=== PATIENT | male | born 1980 | race Two or more races ===

== ENCOUNTER 2024-10-10 19:01 | Emergency (ER) | payer MEDICARE, OTHER ==
[~2024-10-10] VITALS: Ht 170.2 cm; Wt 7.3 kg
[2024-10-10 19:11] VITALS: BP 173/63
[2024-10-10] MEDS ORDERED: HYDROMORPHONE 1 MG/1 ML DISP.SYRIN ONE ×2 (20:13→21:11)
[2024-10-10] MEDS ORDERED: ONDANSETRON 4 MG/2 ML VIAL ONE ×2 (20:13→21:11)
[2024-10-10] MEDS: ONDANSETRON 4 MG/2 ML VIAL IV ONE ×2 (20:17→21:22)
[2024-10-10] MEDS: HYDROMORPHONE 1 MG/1 ML DISP.SYRIN IV ONE ×2 (20:17→21:22)
[2024-10-10 20:23] LABS: PLATELET COUNT (AUTO) 50 K/uL (152-348); RED BLOOD CELL COUNT(AUTO) 3.47 MIL/uL (4.06-5.63); RED CELL DISTRIBUTION WIDTH 13.6 % (12.1-16.2); WHITE BLOOD COUNT (AUTO) 3.6 K/uL (3.6-10.2)
[2024-10-10 20:29] LABS: CREATININE 7.3 mg/dL (0.6-1.3); SODIUM SERUM 138.0 mmol/L (136-145); UREA NITROGEN, BLOOD 39.0 mg/dL (7-18)
[2024-10-10 20:34] LABS: ASPARTATE AMINOTRANSFERASE 9.0 U/L (15-37); TOTAL PROTEIN, SERUM 7.7 g/dL (6.4-8.2)
[2024-10-10] MEDS ORDERED: ONDA4TAB11 PO (21:07)
[2024-10-10] MEDS ORDERED: OXYC-133 PO (21:07)
[2024-10-10 22:31] VITALS: BP 168/66; O2SAT 99
== END 2024-10-10 21:48 | disposition home or self-care (01) ==
LOC: ER 19:08
DX: G89.29 Other chronic pain (principal); R10.9 Unspecified abdominal pain; E11.22 Type 2 diabetes mellitus with diabetic chronic kidney disease; N18.6 End stage renal disease; R94.31 Abnormal electrocardiogram [ECG] [EKG]; Z99.2 Dependence on renal dialysis
CPT/HCPCS: 99284; 96374; 96375; 80053; 83735; 84100; 85025; 36415; 93005; 96376; J2405 ×2; J1171 ×2; A4606; A4663

== ENCOUNTER 2024-11-02 20:19 | Emergency (ER) | payer MEDICARE, OTHER ==
[~2024-11-02] VITALS: Ht 170.2 cm; Wt 72.6 kg
[~2024-11-02 20:19] MED LIST: ONDA4TAB11 PO; OXYC-133 PO
[2024-11-02] MEDS: ONDANSETRON 4 MG/2 ML VIAL IV ONE (21:21)
[2024-11-02] MEDS ORDERED: BUPRENORPHINE HCL 2 MG TAB.SUBL SL ONE (21:21)
[2024-11-02 21:23] LABS: PLATELET COUNT (AUTO) 76 K/uL (152-348); RED BLOOD CELL COUNT(AUTO) 3.41 MIL/uL (4.06-5.63); RED CELL DISTRIBUTION WIDTH 14.3 % (12.1-16.2); WHITE BLOOD COUNT (AUTO) 4.1 K/uL (3.6-10.2)
[2024-11-02] MEDS: BUPRENORPHINE HCL 2 MG TAB.SUBL SL ONE (21:26)
[2024-11-02 21:34] LABS: SODIUM SERUM 139.0 mmol/L (136-145); UREA NITROGEN, BLOOD 44.0 mg/dL (7-18)
[2024-11-02 21:35] LABS: CREATININE 7.6 mg/dL (0.6-1.3)
[2024-11-02 21:41] LABS: ASPARTATE AMINOTRANSFERASE 7.0 U/L (15-37); TOTAL PROTEIN, SERUM 8.2 g/dL (6.4-8.2)
[2024-11-02 23:00] VITALS: BP 148/79
[2024-11-02] MEDS ORDERED: LIDO1ADH82 TP (23:43)
[2024-11-03 00:02] VITALS: BP 148/79; TEMP 98; O2SAT 98
== END 2024-11-03 00:02 | disposition home or self-care (01) ==
LOC: ER 20:21
DX: G89.29 Other chronic pain (principal); M54.9 Dorsalgia, unspecified; R03.0 Elevated blood-pressure reading, without diagnosis of hypertension; R10.9 Unspecified abdominal pain; R11.2 Nausea with vomiting, unspecified; N18.6 End stage renal disease; Z88.7 Allergy status to serum and vaccine; Z99.2 Dependence on renal dialysis
CPT/HCPCS: 99284; 96374; 71045; 80053; 83735; 84100; 85025; 36415; J2405; A4606; A4663